=== PATIENT | female | born 1985 | race Caucasian/White ===

== ENCOUNTER 2023-04-02 12:18 | Emergency (ER) | payer OTHER, SELFPAY ==
[2023-04-02 13:07] VITALS: BP 118/63; PULSE 80; RESP 18; TEMP 36.7; O2SAT 98
--- NOTE | 2023-04-02 13:31 | ED.GENADULT ---
HPI - General Adult General Chief complaint: Upper Respiratory Infection Stated complaint: sorethroat Time Seen by Provider: 04/02/23 13:32 Source: patient Mode of arrival: ambulatory Limitations: no limitations History of Present Illness HPI narrative: 37-year-old female patient presents to the [facility] with complaints of a sore throat that started yesterday. Patient states yesterday started off as a scratchy throat but today has gotten significantly worse. Patient states she has also had some sinus drainage as well. Patient states that her son did have strep throat couple of weeks ago. Denies any fevers, body aches or chills. Denies any headaches, nausea, vomiting or diarrhea. Related Data Home Medications Medication Instructions Recorded Confirmed multivitamin 1 tablet PO DAILY 08/22/22 04/02/23 ferrous sulfate 325 mg (65 mg 325 mg PO DAILY 09/08/22 04/02/23 iron) tablet (iron) cholecalciferol (vitamin D3) 10 04/02/23 mcg (400 unit) tablet Allergies Allergy/AdvReac Type Severity Reaction Status Date / Time amoxicillin [From Amoxil] AdvReac Severe Rash Verified 04/02/23 13:12 DEPO/THALIA AdvReac Severe Insomnia Uncoded 04/02/23 13:12 Review of Systems Review of Systems: CONSTITUTIONAL: Denies fever, chills, or sweats. EYES: Denies visual changes, redness, or discharge. ENT: Positive rhinorrhea, congestion, positive sore throat, denies otalgia. CARDIOVASCULAR: Denies chest pain, palpitations, or edema. RESPIRATORY: Denies cough or dyspnea. GASTROINTESTINAL: Denies abdominal pain, nausea, vomiting, or diarrhea. GENITOURINARY: Denies dysuria or hematuria. SKIN: Denies rash or itching. MUSCULOSKELETAL: Denies back pain, joint pain, or myalgia. NEUROLOGIC: Denies headache, numbness, or weakness. PSYCHIATRIC: Denies anxiety or depression. [facility] Past Medical History Medical History Anxiety Hypothyroidism Iron deficiency Vitamin D deficiency Family History Family History Mother Hypertension Social History Social History Smoking status: Unknown if ever smoked Alcohol intake: current Alcohol use details: OCCASIONAL Substance use: never Substance use type: does not use Lack of Transportation: No Lack of Food: Never True Current Housing: I Have Housing Concerned About Future Housing: No Difficulty Paying Gas/Electric Bills: No Difficulty Paying for Meds: No Currently Unemployed: No Difficulty w/ Childcare or Family Care: No Living arrangements: with family Occupation/Education: occupation Gender identity (if verbalized by the patient): Female Sexual Orientation (if Verbalized by the Patient): Straight or Heterosexual Comments At the time of my signature I agree with nursing past medical history, surgical, social, and family history. There is no relevant family history pertinent to the presenting complaint. Exam Narrative: GENERAL: Well-appearing, well-nourished, and in no acute distress. HEAD: Normocephalic, atraumatic. EYES: PERRLA and EOMI. ENT: Nares clear, no rhinorrhea or epistaxis. Mucous membranes moist. posterior pharynx with some erythema, no tonsillar enlargement, no exudates or lesions present. Bilateral TMs are clear no erythema foreign bodies canal. NECK: Supple. No lymphadenopathy CHEST: Clear to auscultation. No respiratory distress. HEART: Regular rate and rhythm. No murmur heard. Normal peripheral pulses. ABDOMEN: Soft, nontender, nondistended, normal active bowel sounds. EXTREMITIES: Normal range of motion. No edema. SKIN: Warm, dry, no rash. NEURO: No focal deficits. Alert and oriented x3. Course Course Level of Care: Express Care Visit Vital Signs Vital signs: Vital Signs Temperature 36.7 C 04/02/23 13:07 Pulse Rate 80 04/02/23 13:07 Respiratory Rate
== END 2023-04-02 14:17 | disposition home or self-care (01) ==
PROVIDERS: Emergency Provider Nurse Practitioner Family
DX: J02.9 Acute pharyngitis, unspecified (principal); E03.9 Hypothyroidism, unspecified; E61.1 Iron deficiency
CPT/HCPCS: 87081; 87880; 99213; G0463

== ENCOUNTER 2023-08-28 08:44 | Outpatient (CLI) | payer OTHER, SELFPAY ==
--- NOTE | ~2023-08-28 | MM_ITS ---
EXAMINATION: MM screening zackery BI w karan HISTORY: Screening mammogram TECHNIQUE: Craniocaudal and mediolateral oblique 3-D tomosynthesis images were obtained and synthetic 2-D images were generated. CAD analysis was submitted and interpreted. COMPARISON: No prior mammogram is available for comparison at this institution. BREAST PARENCHYMAL COMPOSITION: The breasts are heterogeneously dense, which may obscure small masses . FINDINGS: There is no evidence of suspicious mass, calcification, or architectural distortion to sugg est malignancy in either breast. IMPRESSION: 1. No mammographic evidence of malignancy. 2. Recommend routine screening mammography in one year. BI-RADS Category 1: Negative Reviewed, dictated and finalized at location A.
== END 2023-08-28 08:45 | disposition home or self-care (01) ==
LOC: ANHIMG 08:47
DX: Z12.31 Encounter for screening mammogram for malignant neoplasm of breast (principal)
CPT/HCPCS: 77063; 77067

== ENCOUNTER 2024-11-14 14:13 | Outpatient (CLI) | payer OTHER, SELFPAY ==
--- NOTE | ~2024-11-14 | MM_ITS ---
EXAMINATION: MM screening zackery BI w karan HISTORY: Screening TECHNIQUE: Craniocaudal and mediolateral oblique 3-D tomosynthesis images were obtained and synthetic 2-D images were generated. CAD analysis was submitted and interpreted. COMPARISON: No prior mammogram is available for comparison at this institution. BREAST PARENCHYMAL COMPOSITION: Dense: The breasts are heterogeneously dense, which may obscure small masses FINDINGS: There is no evidence of suspicious mass, calcification, or architectural distortion to sugg est malignancy in either breast. There has been no suspicious interval change. IMPRESSION: 1. No mammographic evidence of malignancy. 2. Recommend routine screening mammography in one year. BI-RADS Category 1: Negative Reviewed, dictated and finalized at location B.
--- OUTSIDE RECORDS SUMMARY | 2024-11-14 14:50 | XMS_ITS | Encounter Summary ---
Author Organization [facility] Address [address] [place] [address] Care Team Providers Care Information Assurance Specialist Name Role Phone None, Physician Primary Care Provider Unavailabl e Reason for Visit * Reason Onset Date Comments Appointment 11/04/2024 Encounter Details Date Type Department Care Team (Late st Contact Info) Description 11/04/2024 Telephone [facility] - Centralized Scheduling [address] [place] [phone] None, Physician [facility] [place] [address] Appointment Social History Tobacco Use Types Packs/Day Years Used Date Smoking Tobacco: Never Smokeless Tobacco: Never Alcohol Use Standard Drinks/Week Comments No 0 (1 standard drink = 0.6 oz pur e alcohol) Comments No Sex and Gender Information Value Date Recorded Sex Assigned at Not on file 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 Answer Date of Assessment Author No 10/13/2013 8:15 AM CDT Rochelle Corrales RN * Is person blind or have serious difficulty seeing? Answer Date of Assessment Author No 10/13/2013 8:15 AM CELESTINAT Rochelle Corrales RN * Does person have serious difficulty walking/climbing stairs? Answer Date of Assessment Author No 10/13/2013 8:15 AM CELESTINAT Rochelle Corrales RN * Does person have difficulty dressing/bathing? Answer Date of Assessment Author No 10/13/2013 8:15 AM CELESTINAT Rochelle Corrales RN * Does person have difficulty doing errands alone? Answer Date of Assessment Author No 10/13/2013 8:15 AM CDT Rochelle Corrales RN documented as of this encounter Mental Status * Does person have difficulty concentrating/remembering/making decisions? Answer Entry Date Author No 10/13/2013 8:15 AM CDT Rochelle Corrales RN documented in this encounter Miscellaneous Notes * Telephone Encounter - Sirisha Ashraf - 11/04/2024 8:34 AM CDT Patient called stating that she is unable to make appt today but will be there Monday documented in this encounter Plan of Treatment Upcoming Encounters Date Type Department Care Team (Late st Contact Info) Description 11/18/2024 10:00 AM CDT Phototherapy Visit [facility] - Dermatology [address] [place] [phone] 11/20/2024 11:45 AM CDT [facility] [address] [place] [phone] 11/25/2024 10:00 AM CDT Phototherapy Visit [facility] - Dermatology [address] [place] [phone] 11/27/2024 11:45 AM CDT Phototherapy Visit [facility] - Dermatology [address] [place] [phone] 12/02/2024 10:00 AM CDT Phototherapy Visit [facility] - Dermatology [address] [place] [phone] 12/04/2024 11:45 AM CDT Phototherapy Visit [facility] - Dermatology [address] [place] [phone] 12/11/2024 1:30 PM CDT Office Visit [facility] - Dermatology [address] [place] [phone] Polina Jarrett MD [address] [place] [address] [place] [phone] 11/20/2025 1:00 PM CDT Office Visit [facility] - CERTIFIED PHYSICAL THERAPIST ASSISTANT [address] [place] [phone] Prosper Resendiz MD [address] [place] [phone] documented as of this encounter Visit Diagnoses Not on filedocumented in this encounter Care Teams Information Assurance Specialist Relationship Specialty Start Date End Date None, Physician [address] [place] [address] PCP - General 12/25/23 documented as of this encounter
--- OUTSIDE RECORDS SUMMARY | 2024-11-14 14:50 | XMS_ITS | Encounter Summary ---
Author Organization [facility] Address [address] [facility] [place] [address] Care Team Providers Care Clock And Watch Hands Painter Name Role Phone None, Physician Primary Care Provider Unavailabl e Encounter Details Date Type Department Care Team (Latest Contact Info) Description 11/13/2024 Travel Social History Tobacco Use Types Packs/Day Years Used Date Smoking Tobacco: Never Smokeless Tobacco: Never Alcohol Use Standard Drinks/Week Comments Yes 0 (1 standard drink = 0.6 oz pur e alcohol) occ PHQ-2 Answer Date Recorded Patient Health Questionnaire-2 Score 0 11/12/2024 Comments No Sex and Gender Information Value Date Recorded Sex Assigned at Not on file 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 Answer Date of Assessment Author No 10/13/2013 8:15 AM CELESTINAT Rochelle Corrales RN * Is person blind or have serious difficulty seeing? Answer Date of Assessment Author No 10/13/2013 8:15 AM CELESTINAT Rochelle Corrales RN * Does person have serious difficulty walking/climbing stairs? Answer Date of Assessment Author No 10/13/2013 8:15 AM Rochelle Thorne RN * Does person have difficulty dressing/bathing? Answer Date of Assessment Author No 10/13/2013 8:15 AM Rochelle Thorne RN * Does person have difficulty doing errands alone? Answer Date of Assessment Author No 10/13/2013 8:15 AM Rochelle Thorne RN documented as of this encounter Mental Status * Does person have difficulty concentrating/remembering/making decisions? Answer Entry Date Author No 10/13/2013 8:15 AM CDT Rochelle Corrales RN documented in this encounter Plan of Treatment Upcoming Encounters Date Type Department Care Team (Late st Contact Info) Description 11/18/2024 10:00 AM CDT Phototherapy Visit [facility] - Dermatology [address] [place] [phone] 11/20/2024 11:45 AM CDT [facility] [address] [place] [phone] 11/25/2024 10:00 AM CDT Phototherapy Visit [facility] - Dermatology [address] [place] [phone] 11/27/2024 11:45 AM CDT Phototherapy Visit [facility] - Dermatology [address] [place] [phone] 12/02/2024 10:00 AM CDT [facility] [address] [place] [phone] 12/04/2024 11:45 AM CDT Phototherapy Visit [facility] - Dermatology [address] [place] [phone] 12/11/2024 1:30 PM CDT Office Visit [facility] - Dermatology [address] [place] [phone] Polina Jarrett MD [address] [place] [address] [place] [phone] 11/20/2025 1:00 PM CDT 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
--- OUTSIDE RECORDS SUMMARY | 2024-11-14 14:50 | XMS_ITS | Encounter Summary ---
Author Organization [facility] Address [address] [facility] [place] [address] Care Team Providers Care Space Officer Name Role Phone None, Physician Primary Care Provider Unavailabl e Encounter Details Date Type Department Care Team (Late st Contact Info) Description 11/13/2024 11:45 AM CDT Phototherapy Visit [facility] - Dermatology [address] [place] [phone] Vitiligo Social History Tobacco Use Types Packs/Day Years Used Date Smoking Tobacco: Never Smokeless Tobacco: Never Alcohol Use Standard Drinks/Week Comments Yes 0 (1 standard drink = 0.6 oz pur e alcohol) occ PHQ-2 Answer Date Recorded Patient Health Questionnaire-2 Score 0 11/12/2024 Comments No Sex and Gender Information Value Date Recorded Sex Assigned at Not on file 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 Answer Date of Assessment Author No 10/13/2013 8:15 AM CDT Rochelle Corrales RN * Is person blind or have serious difficulty seeing? Answer Date of Assessment Author No 10/13/2013 8:15 AM CDT Rochelle Corrales RN * Does person have serious difficulty walking/climbing stairs? Answer Date of Assessment Author No 10/13/2013 8:15 AM CELESTINAT Rochelle Corrales RN * Does person have difficulty dressing/bathing? Answer Date of Assessment Author No 10/13/2013 8:15 AM CDT Rochelle Corrales RN * Does person have difficulty doing errands alone? Answer Date of Assessment Author No 10/13/2013 8:15 AM CDT Rochelle Corrales RN documented as of this encounter Mental Status * Does person have difficulty concentrating/remembering/making decisions? Answer Entry Date Author No 10/13/2013 8:15 AM CDT Rochelle Corrales RN documented in this encounter Progress Notes * Arely Stewart MA - 11/13/2024 12:51 PM CDT Phototherapy performed today. See flowsheet. documented in this encounter Procedure Notes * Arely Stewart MA - 11/13/2024 12:45 PM CDTAssociated Order(s): PROC PHOTOTHERAPY Procedure(s): [place] ULTRAVIOLET LIGHT THERAPY Pre-Procedure Diagnose(s): Vitiligo Treatment Rx #: [id number] Erythema Grade: Minimally perceptible Erythema (faint pink) Emollient applied with assistance: No Total Body Dose mJ Change: Hold dose at previous level mJ/cm2: 1.425 Time (min): 3:14 Total Body Dose Comments: red cabinet Exposure Face (mJ): Treat Goggles/protective glasses: No (eyes closed during tx) Genitals (mJ): N/A documented in this encounter Plan of Treatment Upcoming Encounters Date Type Department Care Team (Late st Contact Info) Description 11/18/2024 10:00 AM CDT Phototherapy Visit [facility] - Dermatology [address] [place] [phone] 11/20/2024 11:45 AM CDT Phototherapy Visit [facility] - Dermatology [address] [place] [phone] 11/25/2024 10:00 AM CDT Phototherapy Visit [facility] - Dermatology [address] [place] [phone] 11/27/2024 11:45 AM CDT Phototherapy Visit [facility] - Dermatology [address] [place] [address], [place] [phone] 12/02/2024 10:00 AM CDT Phototherapy Visit [facility] - Dermatology [address] [place] [phone] 12/04/2024 11:45 AM CDT Phototherapy Visit [facility] - Dermatology [address] [place] [phone] 12/11/2024 1:30 PM CDT Office Visit [facility] - Dermatology [address] [place] [phone] Polina Jarrett MD [address] [place] [address] [place] [phone] 11/20/2025 1:00 PM CDT Office Visit [facility] - HORTICULTURALIST [address] [place] [phone] Prosper eRsendiz MD [address] [place] [phone] documented as of this encounter Procedures Procedure Name Priority Date/Time Associated Diagnosis Comments [place] ULTRAVIOLET LIGHT THERAPY Routine 11/13/2024 12:45 PM CDT Vitiligo documented in this encounter Results * [place] ULTRAVIOLET LIGHT THERAPY (11/13/2024 12:45 PM CDT) Narrative Arely Stewart MA - 11/13/2024 12:45 PM CDT Arely Stewart MA 11/13/2024 12:52 PM Treatment Rx #: [id number] Erythema Grade: Minimally perceptible Erythema (faint pink) Emollient applied with assistance: No Total Body Dose mJ Change: Hold dose at previous level mJ/cm2: 1.425 Time (min): 3:14 Total Body Dose Comments: red cabinet Exposure Face (mJ): Treat Goggles/protective glasses: No (eyes closed during tx) Genitals (mJ): N/A us Polina Jarrett MD PROCEDURE/MINOR SURGICAL ORDERA BLES Final Result documented in this encounter Visit Diagnoses Diagnosis Vitiligo- Primary documented in this encounter Care Teams Space Officer Relationship Specialty Start Date End Date None, Physician [address] [place] [address] PCP - General 12/25/23 documented as of this encounter
--- OUTSIDE RECORDS SUMMARY | 2024-11-14 14:50 | XMS_ITS | Clinical Summary ---
Author Organization [facility] [employer] Address [address] [place] [address] Care Team Providers Care Rehabilitation Specialist Name Role Phone None, Physician Primary Care Provider Unavailabl e Source Comments [facility] [employer],non-owned Affiliates and Associated Physician Practices is amultiple site organization consisting of ambulatory clinics and hospital sitesin [place], [place], [place] and [place]. This disclosure is being madepursuant to the Care Everywhere program and may not contain all information available regarding this patient. Last updated 18.[facility] [employer] Allergies No known active allergies Medications * Be aware that medications may not be up to date on this document. Alwaysverify current medications with the patient. levothyroxine (Synthroid) 100 MCG tablet Take 1 (one) tablet by mouth once daily 4 Active Vit-Fe Fumarate-FA ( VITAMIN) 28-0.8 MG tablet Take 1 Tab by mouth once daily. 11/13/19 25 Discontinu ed(Tx Complete) ibuprofen (MOTRIN) 600 MG tablet Take 1 Tab by mouth every 6 hours as needed for Pain. 30 Tab 1 1 11/13/19 25 Discontinu ed(Tx Complete) oxyCODONE-aceta minophen (PERCOCET) 5-325 MG tablet Take 1 Tab by mouth every 4 hours as needed. 30 Tab 0 4 11/13/19 25 Discontinu ed(Tx Complete) ibuprofen (MOTRIN) 600 MG tablet Take 1 Tab by mouth every 6 hours. 40 Tab 1 4 11/13/19 25 Discontinu ed(List Clean-Up) clobetasol (Temovate) 0.05 % cream RUB IN WELL TWICE A DAY TO INVOLVED AREAS ON ARMS UNTIL CLEAR 3 11/13/19 25 Discontinu ed(Tx Complete) fluticasone (Cutivate) 0.05 % cream APPLY AND RUB IN WELL TO INVOLVED AREAS ON FOREHEAD TWICE DAILY UNTIL CLEAR 3 11/13/19 25 Discontinu ed(Tx Complete) pimecrolimus (Elidel) 1 % creamIndication s:Vitiligo Apply to white spots 2 times daily. 30 days supply. 100 g 4 4 11/13/19 25 Discontinu ed(Tx Complete) tacrolimus (Protopic) 0.1 % ointment Apply to affected areas two times daily. 30 days supply. 60 g 5 4 11/13/19 25 Discontinu ed(Tx Complete) Active Problems Problem Noted Date Diagnosed Date Encounter for health-related screening 4 Overview (09/02/2017): IMO update 09 03 2017 Encounters Date Type Department Care Team Description 11/13/2024 11:45 AM CDT Phototherapy Visit [facility] - Dermatology [address] [place] [phone] Vitiligo 11/13/2024 Travel 11/12/2024 3:00 PM CDT Office Visit [facility] - PHYSICAL FITNESS TRAINER [address] [place] [phone] Prosper Resendiz MD Well woman exam with routine gynecological exam (Primary Dx); Vitiligo 11/12/2024 Travel 11/06/2024 11:45 AM CDT Phototherapy Visit [facility] - Dermatology [address] [place] [phone] Vitiligo 11/06/2024 Travel 11/04/2024 Telephone [facility] - Centralized Scheduling [facility] [place] [phone] None, Physician Appointment 10/30/2024 10:00 AM CDT Phototherapy Visit [facility] - Dermatology [address] [place] [phone] Vitiligo 10/30/2024 Travel 10/23/2024 10:00 AM CDT Phototherapy Visit [facility] - Dermatology [address] [place] [phone] Vitiligo 10/23/2024 Travel 10/21/2024 10:00 AM CDT Phototherapy Visit [facility] - Dermatology [address] [place] [phone] Vitiligo 10/21/2024 Travel 10/16/2024 10:00 AM CDT Phototherapy Visit [facility] - Dermatology [address] [place] [phone] Vitiligo 10/16/2024 Travel 10/14/2024 10:00 AM CDT Phototherapy Visit [facility] - Dermatology [address] [place] [phone] Vitiligo 10/14/2024 Travel 10/09/2024 10:00 AM CDT Phototherapy Visit [facility] Dermatology [address] [place] [phone] Vitiligo 10/09/2024 Travel 10/07/2024 10:00 AM CDT Phototherapy Visit [facility] Dermatology [address] [place] [phone] Vitiligo 10/07/2024 Travel 10/02/2024 10:00 AM CDT Phototherapy Visit [facility] Dermatology [address] [place] [phone] Vitiligo 10/02/2024 Travel 09/30/2024 10:00 AM CDT Phototherapy Visit [facility] Dermatology [address] [place] [phone] Vitiligo 09/30/2024 Travel 09/25/2024 10:00 AM CDT Phototherapy Visit [facility] Dermatology [address] [place] [phone] Vitiligo 09/25/2024 Travel 09/23/2024 10:00 AM CDT Phototherapy Visit [facility] Dermatology [address] [place] [phone] Vitiligo 09/23/2024 Travel 09/18/2024 10:00 AM CDT Phototherapy Visit [facility] Dermatology [address] [place] [phone] Vitiligo 09/18/2024 Travel 09/16/2024 10:00 AM CDT Phototherapy Visit [facility] Dermatology [address] [place] [phone] Vitiligo 09/16/2024 Travel 09/11/2024 10:00 AM CDT Phototherapy Visit [facility] [address] [place] [phone] Vitiligo 09/11/2024 Travel 09/09/2024 10:00 AM CDT Phototherapy Visit [facility] Dermat[facility] [address] [place] [phone] Vitiligo 09/09/2024 Travel 09/04/2024 10:00 AM CDT Phototherapy Visit [facility] Dermatology [address] [place] [phone] Vitiligo 09/04/2024 Travel 08/28/2024 10:00 AM CDT Phototherapy Visit [facility] Dermatology [address] [place] [phone] Vitiligo 08/28/2024 Travel 08/26/2024 10:00 AM CDT Phototherapy Visit [facility] Dermatology [address] [place] [phone] Vitiligo 08/26/2024 Travel 08/21/2024 10:00 AM CDT Phototherapy Visit [facility] Dermatology [address] [place] [phone] Vitiligo 08/21/2024 Travel 08/16/2024 Travel 08/14/2024 10:00 AM CDT Phototherapy Visit [facility] - Dermatology [address] [place] [phone] Vitiligo 08/14/2024 Travel from Last 3 Months Immunizations Immunization Administration Dates Next Due TDAP (7yrs+) 10/14/2013 Family History Medical History Relation Name Comments Diabetes Maternal Grandfather Hypertension Maternal Grandmother Hypertension Mother Relation Name Status Comments Maternal Grandfather Maternal Grandmother Mother Social History Tobacco Use Types Packs/Day Years Used Date Smoking Tobacco: Never Smokeless Tobacco: Never Tobacco Cessation:Counseling Given: Not Answered Alcohol Use Standard Drinks/Week Comments Yes 0 (1 standard drink = 0.6 oz pur e alcohol) occ PHQ-2 Answer Date Recorded Patient Health Questionnaire-2 Score 0 11/12/2024 Comments No Sex and Gender Information Value Date Recorded Sex Assigned at Not on file 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 Gender Identity Not on file Sexual Orientation Not on file Last Filed Vital Signs Vital Sign Reading Time Taken Comments Blood Pressure 126/90 11/12/2024 3:14 PM CDT Pulse 66 10/13/2013 2:31 AM CDT Temperature 36.8 C (98.3 F) 10/15/2013 6:04 AM CDT Respiratory Rate 18 10/15/2013 6:04 AM CDT Oxygen Saturation 99% 10/13/2013 12:43 AM CDT Inhaled Oxygen Concentration 100% 10/13/2013 4 :46 AM CDT Weight 108.9 kg (240 lb) 11/12/2024 3:14 PM CDT Height 160 cm (5' 3) 10/13/2013 12:36 AM CDT Body Mass Index - - Plan of Treatment Upcoming Encounters Date Type Department Care Team (Late st Contact Info) Description 11/18/2024 10:00 AM CDT Phototherapy Visit [facility] - Dermatology [address] [place] [phone] 11/20/2024 11:45 AM CDT Phototherapy Visit [facility] Dermatology [address] [place] [phone] 11/25/2024 10:00 AM CDT [facility] [address] [place] [phone] 11/27/2024 11:45 AM CDT Phototherapy [facility] [address] [place] [phone] 12/02/2024 10:00 AM CDT Phototherapy Visit [facility] - Dermatology [address] [place] [phone] 12/04/2024 11:45 AM CDT Phototherapy Visit [facility] - Dermatology [address] [place] [phone] 12/11/2024 1:30 PM CDT Office Visit [facility] - Dermatology [address] [place] [phone] Polina Jarrett MD [address] [place], [place] [address] [phone] 11/20/2025 1:00 PM CDT Office Visit [facility] - PHYSICAL FITNESS TRAINER [address] [place] [phone] Prosper Resendiz MD [address] [place] [phone] Health Maintenance Due Date Last Done Comments LIPID TESTING 1983 MAMMOGRAM 1983 HIV SCREENING 1998 HEPATITIS C SCREENING 04/23/2001 HEPATITIS B VACCINE (1 of 3 - 19+ 3-dose series) 2002 PAP SMEAR 2004 11/12/2024 PAP with HPV 2013 11/12/2024 DTAP/TDAP/TD VACCINES (2 - T d or Tdap) 10/15/2023 10/14/2013 COVID-19 VACCINE (3 - 2023-2 5 season) 2024 09/27/2020, 09/05/2020 INFLUENZA VACCINE (Season Ended) 2025 03/26/2019, 07/05/2013 ZOSTER VACCINE (1 of 2) 2033 DEPRESSION SCREENING Completed 11/12/2024 HIB VACCINE Aged Out No longer eligi ble based on patient's age to complete this topic HPV VACCINE Aged Out No longer eligi ble based on patient's age to complete this topic MENINGOCOCCAL (Group B) VACCINE SHARED DECISION-MAKING Aged Out No longer eligible based on patient's age to complete this topic MENINGOCOCCAL GROUPS A/C/Y/W VACCINE Aged Out No longer eligible b ased on patient's age to complete this topic PNEUMOCOCCAL VACCINE Aged Out No long er eligible based on patient's age to complete this topic Procedures Procedure Name Priority Date/Time Associated Diagnosis Comments CO ULTRAVIOLET LIGHT THERAPY Routine 11/13/2024 12:45 PM CDT Vitiligo PAP IG LB +HPV APTIMA REFLEX 16,18/45 Routine 11/12/2024 3:26 PM CDT Well woman exam with routine gynecological exam CO ULTRAVIOLET LIGHT THERAPY Routine 11/06/2024 1:12 PM CDT Vitiligo CO ULTRAVIOLET LIGHT THERAPY Routine 10/30/2024 9:53 AM CDT Vitiligo CO ULTRAVIOLET LIGHT THERAPY Routine 10/23/2024 9:57 AM CDT Vitiligo CO ULTRAVIOLET LIGHT THERAPY Routine 10/21/2024 10:35 AM CDT Vitiligo CO ULTRAVIOLET LIGHT THERAPY Routine 10/16/2024 2:01 PM CDT Vitiligo CO ULTRAVIOLET LIGHT THERAPY Routine 10/14/2024 9:59 AM CDT Vitiligo CO ULTRAVIOLET LIGHT THERAPY Routine 10/09/2024 10:06 AM CDT Vitiligo CO ULTRAVIOLET LIGHT THERAPY Routine 10/07/2024 10:00 AM CDT Vitiligo CO ULTRAVIOLET LIGHT THERAPY Routine 10/02/2024 10:48 AM CDT Vitiligo CO ULTRAVIOLET LIGHT THERAPY Routine 09/30/2024 10:00 AM CDT Vitiligo CO ULTRAVIOLET LIGHT THERAPY Routine 09/25/2024 9:41 AM CDT Vitiligo CO ULTRAVIOLET LIGHT THERAPY Routine 09/23/2024 9:59 AM CDT Vitiligo CO ULTRAVIOLET LIGHT THERAPY Routine 09/18/2024 10:06 AM CDT Vitiligo CO ULTRAVIOLET LIGHT THERAPY Routine 09/16/2024 9:53 AM CDT Vitiligo CO ULTRAVIOLET LIGHT THERAPY Routine 09/11/2024 10:00 AM CDT Vitiligo CO ULTRAVIOLET LIGHT THERAPY Routine 09/09/2024 10:22 AM CDT Vitiligo CO ULTRAVIOLET LIGHT THERAPY Routine 09/04/2024 11:50 AM CDT Vitiligo CO ULTRAVIOLET LIGHT THERAPY Routine 08/28/2024 10:32 AM CDT Vitiligo CO ULTRAVIOLET LIGHT THERAPY Routine 08/26/2024 9:40 AM CDT Vitiligo CO ULTRAVIOLET LIGHT THERAPY Routine 08/21/2024 9:58 AM CDT Vitiligo CO ULTRAVIOLET LIGHT THERAPY Routine 08/14/2024 9:46 AM CDT Vitiligo from Last 3 Months Results * CO ULTRAVIOLET LIGHT THERAPY (11/13/2024 12:45 PM CDT) [...] (eyes closed during tx) Genitals (mJ): N/A Polina Jarrett MD PROCEDURE/MINOR SURGICAL ORDERA BLES Final Result * PAP IG LB +HPV APTIMA REFLEX 16,18/45 (11/12/2024 3:26 PM CDT) Diagnosis Comment [facility] ACCOUNT BILL Comment:NEGATIVE FOR INTRAEP ITHELIAL LESION OR MALIGNANCY. Specimen Adequacy Comment [facility] ACCOUNT BILL Comment: Satisfactory for evaluation. Endocervical and/or squamous metaplastic cells (endocervical component) are present. Clinician Provided ICD10 Comment [facility] ACCOUNT BILL Comment:Z01.419 Performed by Comment [facility] ACCOUNT BILL Comment:Carolina Rasheed, Cytol ogist (ASCP) Comment . [facility] ACCOUNT BILL Note Comment [facility] ACCOUNT BILL Comment: The Pap smear is a screening test designed to aid in the detection of premalignant and malignant conditions of the uterine cervix. It is not a diagnostic procedure and should not be used as the sole means of detecting cervical cancer. Both false-positive and false-negative reports do occur. IGLBP CPT Code Automation Comment [facility] ACCOUNT BILL Comment: This liquid based ThinPrep(R) pap test was screened with the use of an image guided system. Human papillomavirus Aptima Negative Negative [facility] ACCOUNT BILL Comment: This nucleic acid amplification test detects fourteen high-risk HPV types (16,18,31,33,35,39,45,51,52,56,58,59,66,68) without differentiation. HPV Genotype Reflexed Comment [facility] ACCOUNT BILL Comment:Criteria not met, HP V Genotype not performed. PART OF UTERINE CERVIX / Unknown 11/12/2024 3:26 PM CDT 11/12/2024 Comment:Cervix Release to pa jass Narrative [facility] ACCOUNT BILL - 11/14/2024 3:10 PM CDT Performed at: - [facility] [address] [id number] Hospital Fellow: Parisa Thornton MD, Phone: [phone] Performed at: 02 - [facility] [address] [place], [place] [id number] Hospital Fellow: Parisa Thornton MD, Phone: [phone] Specimen Comment: [id number] Specimen Comment: Source.............Cervix Specimen Comment: LMP / Prev Treat...None Specimen Comment: No. of containers..01 ThinPrep Vial us Prosper Resendiz MD LAB - PATHOLOGY/CYTOLOGY ORD ERABLES Final Result [facility] ACCOUNT BILL [id number] [place] [address] * CO ULTRAVIOLET LIGHT THERAPY (11/06/2024 1:12 PM CDT) Narrative Arely Stewart MA - 11/06/2024 1:12 PM CDT Arely Stewart MA 11/06/2024 1:15 PM Treatment Rx #: 76 Erythema Grade: Minimally perceptible Erythema (faint pink) Emollient applied with assistance: No Treatment Comments: last tx on 10.10.24; no discomfort Total Body Dose mJ Change: Hold dose at previous level mJ/cm2: 1.425 Time (min): 3:16 Total Body Dose Comments: red cabinet Exposure Face (mJ): Treat Goggles/protective glasses: No (eyes closed during tx) Genitals (mJ): N/A us Polina Jarrett MD PROCEDURE/MINOR SURGICAL ORDERA BLES Final Result * CO ULTRAVIOLET LIGHT THERAPY (10/30/2024 9:53 AM CDT) Narrative Arely Stewart MA - 10/30/2024 9:53 AM CDT Arely Stewart MA 10/30/2024 9:58 AM Treatment Rx #: 75 Erythema Grade: Minimally perceptible Erythema (faint pink) Emollient applied with assistance: No Treatment Comments: no discomfort Total Body Dose mJ Change: Hold dose at previous level mJ/cm2: 1.425 Time (min): 3:38 Total Body Dose Comments: red cabinet Exposure Face (mJ): Treat Goggles/protective glasses: No (eyes closed during tx) Genitals (mJ): N/A Result [facility] Polina Jarrett MD PROCEDURE/MINOR SURGICAL ORDERA BLES Final Result * CO ULTRAVIOLET LIGHT THERAPY (10/23/2024 9:57 AM CDT) Narrative Arely Stewart MA - 10/23/2024 9:57 AM CDT Arely Stewart MA 10/23/2024 10:01 AM Treatment Rx #: 74 Erythema Grade: Minimally perceptible Erythema (faint pink) Emollient applied with assistance: No Total Body Dose mJ Change: Hold dose at previous level mJ/cm2: 1.425 Time (min): 3:37 Total Body Dose Comments: red cabinet Exposure Face (mJ): Treat Goggles/protective glasses: No (eyes closed during tx) Genitals (mJ): N/A Result [facility] Polina Jarrett MD PROCEDURE/MINOR SURGICAL ORDERA BLES Final Result * CO ULTRAVIOLET LIGHT THERAPY (10/21/2024 10:35 AM CDT) Narrative Arely Stewart MA - 10/21/2024 10:35 AM CDT Arely Stewart MA 10/21/2024 10:43 AM Treatment Rx #: 73 Erythema Grade: Minimally perceptible Erythema (faint pink) Emollient applied with assistance: No Treatment Comments: no discomfort Total Body Dose mJ Change: Increased .025 mJ/cm2: 1.425 Time (min): 3:40 Total Body Dose Comments: red cabinet Exposure Face (mJ): Treat Goggles/protective glasses: No (eyes closed during tx) Genitals (mJ): N/A Result [facility] Polina Jarrett MD PROCEDURE/MINOR SURGICAL ORDERA BLES Edited Result - Final * CO ULTRAVIOLET LIGHT THERAPY (10/16/2024 2:01 PM CDT) Arely Schafer MA - 10/16/2024 2:01 PM CDT Arely Stewart MA 10/16/2024 2:04 PM Treatment Rx #: 72 Erythema Grade: Minimally perceptible Erythema (faint pink) Emollient applied with assistance: No Treatment Comments: no discomfort Total Body Dose mJ Change: Hold dose at previous level mJ/cm2: 1.400 Time (min): 3:34 Total Body Dose Comments: red cabinet Exposure Face (mJ): Treat Goggles/protective glasses: No (eyes closed during tx) Genitals (mJ): N/A Polina Jarrett MD PROCEDURE/MINOR SURGICAL ORDERA BLES Final Result * CO ULTRAVIOLET LIGHT THERAPY (10/14/2024 9:59 AM CDT) Narrative Arely Stewart MA - 10/14/2024 9:59 AM CDT Arely Stewart MA 10/14/2024 10:05 AM Treatment Rx #: 71 Erythema Grade: Minimally perceptible Erythema (faint pink) Emollient applied with assistance: No Treatment Comments: no discomfort Total Body Dose mJ Change: Increased .025 mJ/cm2: 1.400 Time (min): 3:34 Total Body Dose Comments: red cabinet Exposure Face (mJ): Treat Goggles/protective glasses: No (eyes closed during tx) Genitals (mJ): N/A Result [facility] Polina Jarrett MD PROCEDURE/MINOR SURGICAL ORDERA BLES Final Result * CO ULTRAVIOLET LIGHT THERAPY (10/09/2024 10:06 AM CDT) Narrative Arely Stewart MA - 10/09/2024 10:06 AM CDT Arely Stewart MA 10/09/2024 10:13 AM Treatment Rx #: 70 Erythema Grade: Minimally perceptible Erythema (faint pink) (+1; a little more pink than usual; no discomfort) Emollient applied with assistance: No Total Body Dose mJ Change: Decreased (See comment) (.050mJ) mJ/cm2: 1.375 Time (min): 3:30 Total Body Dose Comments: red cabinet Exposure Face (mJ): Treat Goggles/protective glasses: No (eyes closed during tx) Genitals (mJ): N/A Result [facility] Polina Jarrett MD PROCEDURE/MINOR SURGICAL ORDERA BLES Final Result * CO ULTRAVIOLET LIGHT THERAPY (10/07/2024 10:00 AM CDT) Narrative Arely Stewart MA - 10/07/2024 10:00 AM CDArely Trotter MA 10/07/2024 10:03 AM Treatment Rx #: 69 Erythema Grade: Minimally perceptible Erythema (faint pink) Emollient applied with assistance: No Treatment Comments: no discomfort Total Body Dose mJ Change: Increased .025 mJ/cm2: 1.425 Time (min): 3:34 Total Body Dose Comments: red cabinet Exposure Face (mJ): Treat Goggles/protective glasses: No (eyes closed during tx) Genitals (mJ): N/A Result [facility] Polina Jarrett MD PROCEDURE/MINOR SURGICAL ORDERA BLES Final Result * CO ULTRAVIOLET LIGHT THERAPY (10/02/2024 10:48 AM CDT) Narrative Arely Stewart MA - 10/02/2024 10:48 AM CDT Arely Stewart MA 10/02/2024 10:57 AM Treatment Rx #: 68 Erythema Grade: Minimally perceptible Erythema (faint pink) Emollient applied with assistance: No Treatment Comments: no discomfort Total Body Dose mJ Change: Hold dose at previous level mJ/cm2: 1.400 Time (min): 3:21 Total Body Dose Comments: red cabinet Exposure Face (mJ): Treat Goggles/protective glasses: No (eyes closed during tx) Genitals (mJ): N/A Result [facility] Polina Jarrett MD PROCEDURE/MINOR SURGICAL ORDERA BLES Final Result * CO ULTRAVIOLET LIGHT THERAPY (09/30/2024 10:00 AM CDT) Narrative Arely Stewart MA - 09/30/2024 10:00 AM CDT Arely Stewart MA 09/30/2024 10:06 AM Treatment Rx #: 67 Erythema Grade: Minimally perceptible Erythema (faint pink) Emollient applied with assistance: No Treatment Comments: no discomfort Total Body Dose mJ Change: Increased .025 mJ/cm2: 1.400 Time (min): 3:35 Total Body Dose Comments: red cabinet Exposure Face (mJ): Treat Goggles/protective glasses: No (eyes closed during tx) Genitals (mJ): N/A Result [facility] Polina Jarrett MD PROCEDURE/MINOR SURGICAL ORDERA BLES Final Result * CO ULTRAVIOLET LIGHT THERAPY (09/25/2024 9:41 AM CDT) Narrative Arely Stewart MA - 09/25/2024 9:41 AM CDT Arely Stewart MA 09/25/2024 9:48 AM Treatment Rx #: 66 Erythema Grade: Minimally perceptible Erythema (faint pink) Emollient applied with assistance: No Treatment Comments: no discomfort Total Body Dose mJ Change: Hold dose at previous level mJ/cm2: 1.375 Time (min): 3:29 Total Body Dose Comments: red cabinet Exposure Face (mJ): Treat Goggles/protective glasses: No (eyes closed during tx) Genitals (mJ): N/A Result [facility] Polina Jarrett MD PROCEDURE/MINOR SURGICAL ORDERA BLES Final Result * CO ULTRAVIOLET LIGHT THERAPY (09/23/2024 9:59 AM CDT) Narrative Arely Stewart MA - 09/23/2024 9:59 AM CDT Arely Stewart MA 09/23/2024 10:03 AM Treatment Rx #: 65 Erythema Grade: Minimally perceptible Erythema (faint pink) Emollient applied with assistance: No Treatment Comments: no discomfort Total Body Dose mJ Change: Increased .025 mJ/cm2: 1.375 Time (min): 3:24 Total Body Dose Comments: red cabinet Exposure Face (mJ): Treat Goggles/protective glasses: No (eyes closed during tx) Genitals (mJ): N/A Result [facility] Polina Jarrett MD PROCEDURE/MINOR SURGICAL ORDERA BLES Final Result * CO ULTRAVIOLET LIGHT THERAPY (09/18/2024 10:06 AM CDT) Narrative Arely Stewart MA - 09/18/2024 10:06 AM CDT Arely Stewart MA 09/18/2024 10:09 AM Treatment Rx #: 64 Erythema Grade: Minimally perceptible Erythema (faint pink) Emollient applied with assistance: No Treatment Comments: no discomfort; very faint pink Total Body Dose mJ Change: Increased .025 mJ/cm2: 1.350 Time (min): 3:20 Total Body Dose Comments: red cabinet Exposure Face (mJ): Treat Goggles/protective glasses: No (eyes closed during tx) Genitals (mJ): N/A Polina Jarrett MD PROCEDURE/MINOR SURGICAL ORDERA BLES Final Result * CO ULTRAVIOLET LIGHT THERAPY (09/16/2024 9:53 AM CDT) Narrative Arely Stewart MA - 09/16/2024 9:53 AM CDT Arely Stewart MA 09/16/2024 9:59 AM Treatment Rx #: 63 Erythema Grade: Minimally perceptible Erythema (faint pink) Emollient applied with assistance: No Treatment Comments: no discomfort Total Body Dose mJ Change: Hold dose at previous level mJ/cm2: 1.325 Time (min): 3:13 Total Body Dose Comments: red cabinet Exposure Face (mJ): Treat Goggles/protective glasses: No (eyes closed during tx) Genitals (mJ): N/A Polina Jarrett MD PROCEDURE/MINOR SURGICAL ORDERA BLES Final Result * CO ULTRAVIOLET LIGHT THERAPY (09/11/2024 10:00 AM CDT) Narrative Arely Stewart MA - 09/11/2024 10:00 AM CDT Arely Stewart MA 09/11/2024 10:06 AM Treatment Rx #: 62 Erythema Grade: Minimally perceptible Erythema (faint pink) Emollient applied with assistance: No Treatment Comments: no discomfort Total Body Dose mJ Change: Hold dose at previous level mJ/cm2: 1.325 Time (min): 3:17 Total Body Dose Comments: red cabinet Exposure Face (mJ): Treat Goggles/protective glasses: No (eyes closed during tx) Genitals (mJ): N/A Polina Jarrett MD PROCEDURE/MINOR SURGICAL ORDERA BLES Final Result * CO ULTRAVIOLET LIGHT THERAPY (09/09/2024 10:22 AM CDT) Narrative Arely Stewart MA - 09/09/2024 10:22 AM CDT Arely Stewart MA 09/09/2024 10:27 AM Treatment Rx #: 61 Erythema Grade: Minimally perceptible Erythema (faint pink) (abdomen area more pink than usual/no discomfort) Emollient applied with assistance: No Treatment Comments: see note Total Body Dose mJ Change: Hold dose at previous level mJ/cm2: 1.325 Time (min): 3:16 Total Body Dose Comments: red cabinet Exposure Face (mJ): Treat Goggles/protective glasses: No (eyes closed during tx) Genitals (mJ): N/A Polina Jarrett MD PROCEDURE/MINOR SURGICAL ORDERA BLES Final Result * CO ULTRAVIOLET LIGHT THERAPY (09/04/2024 11:50 AM CDT) Narrative Arely Stewart MA - 09/04/2024 11:50 AM CDT Arely Stewart MA 09/04/2024 11:53 AM Treatment Rx #: 60 Erythema Grade: Minimally perceptible Erythema (faint pink) Emollient applied with assistance: No Treatment Comments: no discomfort Total Body Dose mJ Change: Hold dose at previous level mJ/cm2: 1.32 Time (min): 3:12 Total Body Dose Comments: red cabinet Exposure Face (mJ): Treat Goggles/protective glasses: No (eyes closed during tx) Genitals (mJ): N/A Result [facility] Polina Jarrett MD PROCEDURE/MINOR SURGICAL ORDERA BLES Final Result * CO ULTRAVIOLET LIGHT THERAPY (08/28/2024 10:32 AM CDT) Narrative Arely Stewart MA - 08/28/2024 10:32 AM CDT Arely Stewart MA 08/28/2024 10:34 AM Treatment Rx #: 59 Erythema Grade: Minimally perceptible Erythema (faint pink) Emollient applied with assistance: No Treatment Comments: no discomfort; very faint pink Total Body Dose mJ Change: Increased .025 mJ/cm2: 1.325 Time (min): 3:16 Total Body Dose Comments: red cabinet Exposure Face (mJ): Treat Goggles/protective glasses: No (eyes closed during tx) Genitals (mJ): N/A Polina Jarrett MD PROCEDURE/MINOR SURGICAL ORDERA BLES Final Result * CO ULTRAVIOLET LIGHT THERAPY (08/26/2024 9:40 AM CDT) Arely Schafer MA - 08/26/2024 9:40 AM CDT Arely Stewart MA 08/26/2024 9:44 AM Treatment Rx #: 58 Erythema Grade: Minimally perceptible Erythema (faint pink) Emollient applied with assistance: No Treatment Comments: no discomfort Total Body Dose mJ Change: Hold dose at previous level mJ/cm2: 1.300 Time (min): 3:12 Total Body Dose Comments: red cabinet Exposure Face (mJ): Treat Goggles/protective glasses: No (eyes closed during tx) Genitals (mJ): N/A Result [facility] Polina Jarrett MD PROCEDURE/MINOR SURGICAL ORDERA BLES Final Result * CO ULTRAVIOLET LIGHT THERAPY (08/21/2024 9:58 AM CDT) Narrative Arely Stewart MA - 08/21/2024 9:58 AM CDT Arely Stewart MA 08/21/2024 9:59 AM Treatment Rx #: 57 Erythema Grade: Minimally perceptible Erythema (faint pink) Emollient applied with assistance: No Treatment Comments: no discomfort Total Body Dose mJ Change: Hold dose at previous level mJ/cm2: 1.300 Time (min): 3:10 Total Body Dose Comments: red cabinet Exposure Face (mJ): Treat Goggles/protective glasses: No (eyes closed during tx) Genitals (mJ): N/A Result [facility] Polina Jarrett MD PROCEDURE/MINOR SURGICAL ORDERA BLES Final Result * CO ULTRAVIOLET LIGHT THERAPY (08/14/2024 9:46 AM CDT) Narrative Arely Stewart MA - 08/14/2024 9:46 AM CDT Arely Stewart MA 08/14/2024 10:52 AM Treatment Rx #: 56 Erythema Grade: Minimally perceptible Erythema (faint pink) Emollient applied with assistance: No Treatment Comments: no discomfort Total Body Dose mJ Change: Hold dose at previous level mJ/cm2: 1.300 Time (min): 3:09 Total Body Dose Comments: red cabinet Exposure Face (mJ): Treat Goggles/protective glasses: No (eyes closed during tx) Genitals (mJ): N/A Result [facility] Polina Jarrett MD PROCEDURE/MINOR SURGICAL ORDERA BLES Edited Result - Final from Last 3 Months Insurance [facility] Advance Directives * Full Code (Latest Code Status on File) Date Activated Date Inactivated Comments 10/13/2013 1:23 AM 10/15/2013 12:41 PM * Full Code Date Activated Date Inactivated Comments 10/13/2013 12:19 AM 10/13/2013 1:23 AM * Full Code Date Activated Date Inactivated Comments 01/08/2011 5:11 AM 01/11/2011 12:03 AM * FULL RESUSCITATION Date Activated Date Inactivated Comments 01/08/2011 1:55 AM 01/08/2011 5:11 AM Care Teams Rehabilitation Specialist Relationship Specialty Start Date End Date None, Physician [id number] [place] [address] PCP - General 12/25/23
== END 2024-11-14 14:14 | disposition home or self-care (01) ==
LOC: CHSIMG 14:15
PROVIDERS: PCP Physician Assistant Medical
DX: Z12.31 Encounter for screening mammogram for malignant neoplasm of breast (principal)
CPT/HCPCS: 77063; 77067